=== PATIENT | female | born 1985 | race American Indian/Alaskan Native ===

== ENCOUNTER 2017-10-14 14:04 | Emergency (ER) | payer MEDICAID ==
--- NOTE | 2017-10-14 16:24 | XRay Report ---
FINAL REPORT EXAM: XR HAND 3+V RT HISTORY: right hand swelling and pain TECHNIQUE: Two views of the right hand. PRIORS: None. FINDINGS: There is an acute fracture through the distal aspect of the 5th metacarpal with mild anterior angulation. No dislocation. Normal mineralization. There is soft tissue swelling of the medial aspect of the right hand. IMPRESSION: Acute right 5th metacarpal fracture.
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
[2017-10-14 19:48] VITALS: BP 130/86
== END 2017-10-14 17:00 | disposition home or self-care (01) ==
LOC: ED 14:04
DX: S62.366A Nondisplaced fracture of neck of fifth metacarpal bone, right hand, initial encounter for closed fracture (principal); F17.200 Nicotine dependence, unspecified, uncomplicated; Y04.2XXA Assault by strike against or bumped into by another person, initial encounter; Y93.89 Activity, other specified; Y92.89 Other specified places as the place of occurrence of the external cause; Y99.8 Other external cause status

== ENCOUNTER 2021-07-19 21:24 | Emergency (ER) | payer OTHER, MEDICAID ==
[2021-07-19 23:07] VITALS: BP 123/79
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
== END 2021-07-20 01:39 | disposition home or self-care (01) ==
LOC: ED 21:24
DX: S39.012A Strain of muscle, fascia and tendon of lower back, initial encounter (principal); V49.59XA Passenger injured in collision with other motor vehicles in traffic accident, initial encounter; Y93.89 Activity, other specified; Y92.89 Other specified places as the place of occurrence of the external cause; Y99.8 Other external cause status
CPT/HCPCS: 99282

== ENCOUNTER 2021-08-15 04:32 | Emergency (ER) | payer MEDICAID, OTHER ==
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
--- NOTE | 2021-08-15 07:06 | XRay Report ---
LEFT ANKLE 3 VIEWS INDICATION / CLINICAL INFORMATION: Twisting injury with left ankle pain and swelling. COMPARISON: None available. FINDINGS: BONES / JOINT(S): No acute fracture or subluxation. No significant arthritis. SOFT TISSUES: No significant abnormality. ADDITIONAL FINDINGS: None. IMPRESSION: No acute abnormality is identified. Signer Name: Noé Gutierrez MD Signed: 08/15/2021 7:00 AM Workstation Name: [id number]
--- NOTE | 2021-08-15 07:06 | XRay Report ---
RIGHT HAND 3 VIEWS INDICATION / CLINICAL INFORMATION: Fall with right ring finger pain/swelling. COMPARISON: None available. FINDINGS: BONES / JOINT(S): There is an acute fracture involving the base of the distal phalanx of the ring fin josefa laterally. There is extension of the fracture into the interphalangeal joint. No associated dislo cation. No significant arthritis. SOFT TISSUES: No significant abnormality. ADDITIONAL FINDINGS: None. IMPRESSION: Acute intra-articular fracture involving the base of the distal phalanx of the ring jimmie tay Signer Name: Noé Gutierrez MD Signed: 08/15/2021 7:02 AM Workstation Name: [id number]
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
[2021-08-15] MEDS: HYDROcodone/ACETAMINOPHEN 5-325 MG TAB PO ONE ×2 (08:03→08:15)
[2021-08-15 09:28] VITALS: BP 131/92
== END 2021-08-15 08:59 | disposition home or self-care (01) ==
LOC: ED 04:32
DX: S93.402A Sprain of unspecified ligament of left ankle, initial encounter (principal); S62.604A Fracture of unspecified phalanx of right ring finger, initial encounter for closed fracture; X58.XXXA Exposure to other specified factors, initial encounter; Y93.89 Activity, other specified; Y92.89 Other specified places as the place of occurrence of the external cause; Y99.8 Other external cause status
CPT/HCPCS: 99283